=== PATIENT | female | born 1990 | race Caucasian/White ===

== ENCOUNTER 2018-04-10 07:55 | Inpatient (IN) ==
[2018-04-10] MEDS ORDERED: Naloxone 0.4 MG/ML INJ IVP PRN (08:27)
[2018-04-10] MEDS ORDERED: *HR* Nalbuphine 10 MG/ML AMPUL IVP PRN (08:27)
[2018-04-10] MEDS ORDERED: Famotidine 20 MG/2 ML VIAL IVP PRN (08:27)
[2018-04-10] MEDS ORDERED: Ondansetron 4 MG/2 ML VIAL IVP PRN (08:27)
[2018-04-10] MEDS ORDERED: Metoclopramide 10 MG/2 ML VIAL IVP PRN (08:27)
[2018-04-10] MEDS ORDERED: Ringers Solution, Lactated 1,000 ML IVC SCH (08:30)
[2018-04-10] MEDS ORDERED: Oxytocin 20 units/ LR 1000 mL 20 UNIT/1,000 ML BAG IVC SCH (08:45)
[2018-04-10] MEDS ORDERED: Oxytocin 20 units/ LR 1000 mL 20 UNIT/1,000 ML BAG IVC ONE (08:49)
[2018-04-10] MEDS ORDERED: Ringers Solution, Lactated 1,000 ML ONE (08:49)
[2018-04-10 08:53] LABS: Basophils % 0.4 %; Eosinophils # 0.1 K/mcL (0.0-0.6); Eosinophils % 0.5 %; Hematocrit 36.9 % (35.3-44.9); Hemoglobin 12.6 g/dL (11.5-15.4); Immature Granulocytes % 0.5 % (0-4); Lymphocytes # 2.4 K/mcL (0.6-4.6); Lymphocytes % 24.7 %; Mean Corpuscular HGB Conc 34.1 g/dL (31.6-35.5); Mean Corpuscular Hemoglobin 30.3 pg (28.0-33.3); Mean Corpuscular Volume 88.7 fL (83.0-100.0); Mean Platelet Volume 11.4 fL (9.4-12.4); Monocytes # 0.7 K/mcL (0.0-1.3); Monocytes % 7.6 %; Neutrophils # 6.4 K/mcL (1.6-8.9); Platelet Count 270 K/mcL (140-400); Red Blood Count 4.16 M/mcL (3.82-4.97); Red Cell Distribution Width 12.9 % (11.5-14.5); Segmented Neutrophils % 66.3 %
--- NOTE | 2018-04-10 08:59 | OB/GYN History & Physical ---
Date of Encounter: 04/10/18 Time of Encounter: 08:57 Assessment and Plan (1) 39 weeks gestation of Current visit: Yes Status: Acute History of Present Illness Chief complaint: 28-year-old female at 39 weeks of gestation for induction HPI: Ms. Pimentel is a 28 year old female at 39 weeks gestation scheduled for induction of labor. Patient presents today for induction doing well. She is having no complaint. She is huber already. On exam she is 2 cm 80% eff aced. We will place Weaver induction begin Pitocin. Patient doing well. Having no complaints. She has no drug allergies. Currently on vitamins. She has no chronic medical conditions. Surgical history includes a LEEP procedure. She has a history of abnormal Pap smears. She has no history of STDs or pelvic infections. She has no history of abnormal breast findings. Socially she de nies tobacco, alcohol, illicit drug use. Family history significant for hypertension, heart disease and mental illness. Past Med Surg Social Fam HX - Past Medical History Medical history: no medical history - Social History Smoking Status: Never smoker Alcohol use: occasionally Obstetrical History - Pregnancies : 2 Ab's: 1 Medications and Allergies Allergy/AdvReac Type Severity Reaction Status Date / Time No Known Allergies Allergy Verified 04/18/15 16:34 Review of System OB All systems PM: reviewed and no additional remarkable complaints except as stated Exam - Constitutional Constitutional: well developed, well nourished, no acute distress, average body habitus - HEENT HEENT: EOMI, PERRL, Normocephaly - Neck Neck exam: full ROM, normal inspection - Lungs Respiratory exam: CTAB - Cardiovascular Cardiovascular exam: RRR - Abdomen Abdomen: Present: bowel sounds normal - Extremities Extremities exam: full ROM - Vagina Vagina: Present: normal moisture - Cervix Dilation: 2 Effacement: 80 Station: -2 - Uterus Uterus exam: Present: normal size Results Result Diagrams: 04/10/18 08:30 All other labs normal. - VTE Reasons for not Prescribing Prophylaxis: Treatment not Indicated - Low risk for VTE
[2018-04-10 09:10] LABS: Amphetamine Screen,Urine Negative ng/mL (Cutoff=1000); Barbiturate Screen,Urine Negative ng/mL (Cutoff=200); Benzodiazepines Screen,Urine Negative ng/mL (Cutoff=200); Cannabinoid Screen,Urine Negative ng/mL (Cutoff = 50); Cocaine Screen,Urine Negative ng/mL (Cutoff= 300); Opiate Screen,Urine Negative ng/mL (Cutoff=300); Phencyclidine Screen,Urine Negative ng/mL (Cutoff=25)
--- NOTE | 2018-04-10 10:12 | Event Note ---
Date of Encounter: 04/10/18 Time of Encounter: 10:11 Weaver induction started using 60 mL Weaver. Sterile vaginal exam she is 2 cm 90% effaced and 0 station. Category 1 tracing noted with heart rate in the 130s to 140 range. Contractions every 2-4 minutes. Pitocin has been started.
[2018-04-10] MEDS ORDERED: Lidocaine -MPF 1% 5 ML AMPUL ONE (12:38)
[2018-04-10] MEDS ORDERED: Epidural Premix (fent/bupiv) 110 ML EP ONE (12:40)
[2018-04-10] MEDS ORDERED: Epidural Premix (fent/bupiv) 110 ML EP SCH (12:45)
--- NOTE | 2018-04-10 13:10 | Anesthesia Evaluation PreOp ---
Date of Encounter: 04/10/18 Time of Encounter: 13:09 - Past History Planned Operation: CARLIN Cardiac History: Denies any Significant Hx Pulmonary History: Denies Any Significant HX CONTROL ROOM HELPER History: Denies Any Significant HX Other Medical History: Thyroid Anesthesia History: No Prior Anesthetic Complications, Past Anesthesia Alcohol Use: occasionally Drug use: none Medications and Allergies Ferrous Sulfate 1 tab PO DAILY 04/10/18 [History] Levothyroxine [Synthroid] 1 tab PO DAILY 04/10/18 [History] 19 Tablet 1 tab PO DAILY 04/10/18 [History] Allergy/AdvReac Type Severity Reaction Status Date / Time No Known Allergies Allergy Verified 04/18/15 16:34 - Meds/Allergy Pre-op Review Medications Reviewed: Yes Allergies Reviewed: Yes Beta Blockers on Current Med List: No Anesthesia Results - Labs 04/10/18 08:30 Anesthesia Exam O2 Sat Height 1.6 m Weight 70.488 kg NPO (# of Hours): 3 Pain Scale: 9 Pain Scale Used: Numeric (1 - 10) - HEENT Pupil (Motor): Pupils equal Mallampati: II Teeth: Normal Oral Opening: Greater than 3 - CONTROL ROOM HELPER LOC: Oriented CONTROL ROOM HELPER Motor: Normal RUE, Normal LUE, Normal RLE, Normal LLE, Normal Face CONTROL ROOM HELPER Sensory: Normal: RUE, LUE, RLE, LLE, Face - Cardiac Rhythm: Regular Murmur: None JVD: No Carotid Bruit: No - Pulmonary Breath Sounds: bilateral Clear Respiratory Effort: Symmetrical Anesthesia Assess/Plan ASA Score: 2 Level of consciousness: Cooperative, Oriented Anesthetic Plan: General (plan b), Epidural (plan a) Autologous Blood: Yes Monitoring Plan: Standard Monitors Recovery Plan: PACU
--- NOTE | 2018-04-10 13:11 | Anesthesia Procedures ---
Addendum entered and electronically signed by Storm Salomon CRNA 04/11/18 06:42: Delivery Date: 04/10/18 Infant Delivery Time: 22:19 Original Note: Date of Encounter: 04/10/18 Time of Encounter: 13:10 Procedures: Anesthesia - Epidural/Spinal Patient ID/Chart reviewed: Yes Patient examined: Yes OB Eval: Gestational age: 39 OB Eval: : 2 OB Eval: Hx Para: 0 OB Eval: Dilated at (cm): 5 OB Eval: Contractions: Non-stressed pattern Consent Obtained: Yes Supplemental Oxygen: None/Room Air Site Prep: Aseptic Technique, Sterile prep and drape, Povidone-Iodine 1% Patient position: upright Local Anesthetic: Lidocaine 1% Amount of Local Anesthetic used: 3 Touhy Needle Gauge: 18 Touhy Needle Depth (cm): 7 Catheter Depth at Skin (cm): 20 Test Dose (1.5% Lido + Epi): Volume given (mls): 5 Test Dose Result: Negative Loading Dose: Other: 10mls of epidural pharm bag premix solution Loading Dose Administered: Thru Catheter Infusion Med: 0.125% Bupivacaine w/ 2 mcg/ml Fentanyl Infusion Rate (mls/hr): 14 ([id number] pcea) Catheter Secured in Place: Tegaderm, Tape Interspace Used: L4-L5 Loss of Resistance (KEELEY): Yes Blood: No CSF: No Paresthesia: No Procedure: pt tolerated procedure well. no complications. vss. fhr stable.
[2018-04-10] MEDS ORDERED: Lidocaine/EPI 1:200k 2% PF 20 ML VIAL ONE (17:02)
[2018-04-10] MEDS ORDERED: *HR* Ropivacaine/PF 0.2% 20 ML VIAL ONE (17:03)
--- NOTE | 2018-04-10 17:11 | Anesthesia Progress Note ---
Date of Encounter: 04/10/18 Time of Encounter: 17:09 Anesthesia Note - Note Note: 04/10/18 17:09 called for increased pain only on the lower ride side, not feeling contractions anywhere else. bolus given of 4ml 2% lido with epi and 4ml of 0.2% ropivacaine. adequate relief. gtt increased to 16ml/hr.
--- NOTE | 2018-04-10 21:27 | Event Note ---
Date of Encounter: 04/10/18 Time of Encounter: 21:25 Patient has had an anterior lip for the last 2 hours. On examination I was able to reduce the cervix with pushing. The patient stayed complete. Patient was able to bring down to a +1 station easily. We will begin pushing. heart rate tracing is category 1 contractions every 2 minutes.
--- NOTE | 2018-04-10 22:46 | OB/GYN Procedure Note ---
Delivery - Delivery Date: 04/10/18 Provider: Antonio Stanford Intrapartum events: none Delivery induction: oxytocin, brunner Delivery augmentation: pitocin Delivery monitor: external FHT, external uterine Anesthesia: epidural Quantitated Blood Loss: 300 - (s) Infant A Delivery Date: 04/10/18 Infant Delivery Time: 22:19 Presentation: vertex Position: OP Route of delivery: Gender: Male Viability: Viable Pounds: 8 Ounces: 7 Weight Gram: 3.83 kg at 1 minute: 9 at 5 mins: 9 Shoulder Dystocia: not encountered Specimens collected: cord blood Placenta: spontaneous Cord: nuchal cord, 3 umbilical vessels, nuchal reduced - Repair Episiotomy: none Laceration Description: Perineal - 2nd Degree - Complications Delivery complications: none Delivery comments: Patient progressed to complete and pushing. Patient had spontaneous vaginal delivery of a male infant in occiput posterior presentation. There was a cord around the neck which was reduced after delivery of head. The rest of the infant was then delivered without difficulty. Infant cried immediately upon delivery. Cord was clamped cut. The infant was then passed to the NICU team in attendance. Cord blood was obtained. Placenta was delivered spontaneously and intact. There were no cervical, vaginal or periurethral lacerations noted. There was a second-degree perineal laceration repaired with 3-0 Vicryl suture in the usual fashion. Patient delivered a male weight was 8 lbs. 7 oz. with Apgars of 9 at 1 minute and 9 at 5 minutes. Estimated blood loss is 300 mL. - Disposition Mom disposition: stable in LDR disposition: stable in LDR
[2018-04-11] MEDS ORDERED: Acetaminophen 325 MG TABLET PO PRN (00:35)
[2018-04-11] MEDS ORDERED: Measles/Mumps/Rubella Vacc 0.5 ML VIAL SQ PRN (00:35)
[2018-04-11] MEDS ORDERED: Oxytocin 20 units/ LR 1000 mL 20 UNIT/1,000 ML BAG IVC SCH (00:35)
[2018-04-11] MEDS: Ibuprofen 600 MG TABLET PO PRN ×4 (01:22→21:29)
[2018-04-11 08:11] LABS: Basophils % 0.1 %; Hematocrit 27.1 % (35.3-44.9); Immature Granulocytes % 0.5 % (0-4); Lymphocytes # 1.8 K/mcL (0.6-4.6); Lymphocytes % 8.5 %; Mean Corpuscular HGB Conc 34.3 g/dL (31.6-35.5); Mean Corpuscular Hemoglobin 30.6 pg (28.0-33.3); Mean Corpuscular Volume 89.1 fL (83.0-100.0); Mean Platelet Volume 11.5 fL (9.4-12.4); Monocytes # 1.4 K/mcL (0.0-1.3); Monocytes % 6.6 %; Neutrophils # 17.7 K/mcL (1.6-8.9); Platelet Count 207 K/mcL (140-400); Red Blood Count 3.04 M/mcL (3.82-4.97); Red Cell Distribution Width 12.9 % (11.5-14.5); Segmented Neutrophils % 84.3 %
[2018-04-11 08:13] LABS: Hemoglobin 9.3 g/dL (11.5-15.4)
[2018-04-11] MEDS ORDERED: NON-FORMULARY MEDICATION 1 EACH EACH (Prenatal 19 Tablet 1 TAB) PO SCH (09:00)
[2018-04-11] MEDS ORDERED: NON-FORMULARY MEDICATION 1 EACH EACH (Ferrous Sulfate 1 TAB) PO SCH (09:00)
[2018-04-11] MEDS: Prenatal Vit/FA 1 EACH TABLET PO SCH (10:29)
--- NOTE | 2018-04-12 07:13 | Discharge Summary ---
Date of Encounter: 04/12/18 Time of Encounter: 07:11 - Discharge Diagnosis (1) Status post vaginal delivery Priority: Primary Status: Acute Comments: Patient meeting day one milestones. Pain well-controlled with prescribed medications, tolerating regular diet. Voiding without difficulty. No bowel movement yet. Anticipate discharge today (2) Breast feeding status of mother Priority: Secondary Status: Acute Comments: support as needed (3) anemia Priority: Secondary Status: Acute Comments: Patient is asymptomatic with hemoglobin of 9.3 this morning, vitals within normal limits. We will send home with iron prescription to take daily (4) Second degree perineal laceration Priority: Secondary Status: Acute Comments: Ice packs, and Motrin as needed. Patient states pain is well-controlled with Motrin - Discharge Medications Prescriptions: Ibuprofen [Motrin] 600 mg PO Q6HR PRN #60 tablet PRN Reason: Moderate Pain Breast Pump [BREAST PUMP] 1 each .ROUTE AD #1 each Ferrous Sulfate 325 mg PO DAILY@0800 #30 tablet Home Medications: Levothyroxine [Synthroid] 1 tab PO DAILY 04/10/18 [History] 19 Tablet 1 tab PO DAILY 04/10/18 [History] Acetaminophen [Tylenol] 650 mg PO Q6HR PRN tablet 04/12/18 [Rx] Breast Pump [BREAST PUMP] 1 each .ROUTE AD #1 each 04/12/18 [Rx] Docusate [Colace] 100 mg PO BID capsule 04/12/18 [Rx] Ferrous Sulfate 325 mg PO DAILY@0800 #30 tablet 04/12/18 [Rx] Ibuprofen [Motrin] 600 mg PO Q6HR PRN #60 tablet 04/12/18 [Rx] Allergies/Adverse Reactions: Allergy/AdvReac Type Severity Reaction Status Date / Time No Known Allergies Allergy Verified 04/18/15 16:34 Data Procedures and tests throughout hospitalization: Laboratory Tests 04/10/18 04/10/18 04/11/18 08:30 08:30 07:45 WBC 9.6 21.0 H D RBC 4.16 3.04 L Hgb 12.6 9.3 L D Hct 36.9 27.1 L MCV 88.7 89.1 MCH 30.3 30.6 MCHC 34.1 34.3 RDW 12.9 12.9 Plt Count 270 207 MPV 11.4 11.5 Immature Gran % 0.5 0.5 Seg Neutrophils % 66.3 84.3 Lymphocytes % 24.7 8.5 Monocytes % 7.6 6.6 Eosinophils % 0.5 0.0 Basophils % 0.4 0.1 Neutrophils # 6.4 17.7 H Lymphocytes # 2.4 1.8 Monocytes # 0.7 1.4 H Eosinophils # 0.1 0.0 Basophils # 0.0 0.0 Urine Opiates Screen Negative Ur Barbiturates Screen Negative Ur Phencyclidine Scrn Negative Ur Amphetamines Screen Negative U Benzodiazepines Scrn Negative Urine Cocaine Screen Negative U Marijuana (THC) Screen Negative Ur Drug Screen Interp See Below Labs on day of discharge: Labs from last 24 hours 04/11/18 07:45 WBC 21.0 H D RBC 3.04 L Hgb 9.3 L D Hct 27.1 L MCV 89.1 MCH 30.6 MCHC 34.3 RDW 12.9 Plt Count 207 MPV 11.5 Immature Gran % 0.5 Seg Neutrophils % 84.3 Lymphocytes % 8.5 Monocytes % 6.6 Eosinophils % 0.0 Basophils % 0.1 Neutrophils # 17.7 H Lymphocytes # 1.8 Monocytes # 1.4 H Eosinophils # 0.0 Basophils # 0.0 Date of admission: 04/10/18 07:55 Consults: 04/11/18 00:35 Consult to Diesel Powerplant Supervisor [CONS] Routine Comment: Vaginal delivery, consult needed Discharging clinician: Margret Hanna Anticipated date of discharge: 04/12/18 - Patient Status Disposition: Home, Self-Care Condition: Good Functional capacity at discharge: independent ambulation Overall status at discharge: patient is progressing back to baseline - Discharge Instructions - Diet and Activity Activity: resume usual activities as tolerated Diet: regular diet Hospital Course Reason for admission: induction of labor Delivery: Episiotomy: none Laceration: 2nd degree Other procedures: none complications: none Discharge diagnosis: IUP at term delivered [place] baby: male Hospital course: Patient meeting day one milestones. Pain well-controlled with prescribed medications. Voiding without difficulty. No bowel movement yet. Anticipate discharge today Delivery Date: 04/10/18 Provider: Antonio Stanford Intrapartum events: none Delivery induction: oxytocin, brunner Delivery augmentation: pitocin Delivery monitor: external FHT, external uterine Anesthesia: epidural Quantitated Blood Loss: 300 - Infant (s) A Infant Delivery Date: 04/10/18 Delivery Time: 22:19 Presentation: vertex Position: OP Route of delivery: Gender: Male Viability: Viable Pounds: 8 Ounces: 7 Weight Gram: 3.83 kg at 1 minute: 9 at 5 mins: 9 Shoulder Dystocia: not encountered Specimens collected: cord blood Placenta: spontaneous Cord: nuchal cord, 3 umbilical vessels, nuchal reduced - Repair Episiotomy: none Laceration Description: Perineal - 2nd Degree - Complications Delivery complications: none Delivery comments: Patient progressed to complete and pushing. Patient had spontaneous vaginal delivery of a male in occiput posterior presentation. There was a cord around the neck which was reduced after delivery of infant head. The rest of the infant was then delivered without difficulty. cried immediately upon delivery. Cord was clamped cut. The infant was then passed to the NICU team in attendance. Cord blood was obtained. Placenta was delivered spontaneously and intact. There were no cervical, vaginal or periurethral lacerations noted. There was a second-degree perineal laceration repaired with 3-0 Vicryl suture in the usual fashion. Patient delivered a male infant weight was 8 lbs. 7 oz. with Apgars of 9 at 1 minute and 9 at 5 minutes. Estimated blood loss is 300 mL. Time Attestation: Total time spent providing and/or coordinating discharge services: Time Spent: Less than 30 minutes Exam - Constitutional Vitals: Temp Pulse Resp BP Pulse Ox 98.0 F 79 14 126/83 97 04/11/18 21:34 04/11/18 21:34 04/11/18 21:34 04/11/18 21:34 04/11/18 21:34 General appearance IM: A&O X 3, pleasant, no acute distress, answers questions appropriately - Respiratory Respiratory exam: Present: CTAB - Cardiovascular Cardiovascular exam IM: Present: RRR, +S1, +S2 - GI/Abdominal GI/Abdominal exam IM: normal bowel sounds, soft - Rectal Rectal exam: deferred - Extremities Exam Extremities exam IM: Present: full ROM, normal capillary refill, normal inspection - Neurological Exam Neurological exam: alert, normal gait, oriented X3
[2018-04-12] MEDS: Ibuprofen 600 MG TABLET PO PRN (07:39)
[2018-04-12 07:40] VITALS: BP 123/84
[2018-04-12] MEDS: Prenatal Vit/FA 1 EACH TABLET PO SCH (07:40)
== END 2018-04-12 12:15 | disposition home or self-care (01) | DRG 807 ==
LOC: 1NENULAB 07:55 → 1NENUOBS 04-11 00:34
PROVIDERS: ADMIT Obstetrics & Gynecology; ATTEND Obstetrics & Gynecology

== ENCOUNTER 2020-12-07 06:46 | Inpatient (IN) ==
[~2020-12-07 06:46] MED LIST: *HR* Nalbuphine 10 MG/ML AMPUL IV PRN; Azithromycin 500 MG in 0.9 % Sodium Chloride 250 ML IVPB PRN; Famotidine 20 MG/2 ML VIAL IVP PRN; Lidocaine 1% 20 ML MDV INFILT PRN; Metoclopramide 10 MG/2 ML VIAL IVP PRN; Naloxone 0.4 MG/ML INJ IVP PRN; Ondansetron 4 MG/2 ML VIAL IVP PRN; Penicillin G Potassium 5,000,000 UNIT in 0.9 % Sodium Chloride Mini Bag 100 ML IVPB ONE
[2020-12-07] MEDS ORDERED: Ringers Solution, Lactated 1,000 ML ONE ×2 (06:48→09:50)
[2020-12-07 07:11] LABS: Basophils % 0.4 %; Eosinophils # 0.1 K/mcL (0.0-0.6); Eosinophils % 0.7 %; Hematocrit 35.9 % (35.3-44.9); Hemoglobin 11.9 g/dL (11.5-15.4); Immature Granulocytes % 0.7 % (0-4); Lymphocytes # 2.4 K/mcL (0.6-4.6); Lymphocytes % 21.9 %; Mean Corpuscular HGB Conc 33.1 g/dL (31.6-35.5); Mean Corpuscular Hemoglobin 29.9 pg (28.0-33.3); Mean Corpuscular Volume 90.2 fL (83.0-100.0); Mean Platelet Volume 10.9 fL (9.4-12.4); Monocytes # 0.7 K/mcL (0.0-1.3); Monocytes % 6.4 %; Neutrophils # 7.5 K/mcL (1.6-8.9); Platelet Count 263 K/mcL (140-400); Red Blood Count 3.98 M/mcL (3.82-4.97); Segmented Neutrophils % 69.9 %; White Blood Count 10.8 K/mcL (4.3-11.1)
[2020-12-07 07:31] LABS: Alanine Aminotransferase 13 Units/L (7-52); Aspartate Amino Transferase 20 Units/L (13-39); BUN/Creatinine Ratio 10 (6-26); Blood Urea Nitrogen 7 mg/dL (6-20); Influenza A PCR Negative (Negative); Influenza B PCR Negative (Negative); Lactate Dehydrogenase 156 Units/L (140-271); Resp. Syncytial Virus PCR Negative (Negative); Uric Acid 5.8 mg/dL (2.3-7.6); eGFR For African Americans > 60 (> 60); eGFR For Non-African Americans > 60 (> 60)
[2020-12-07 07:36] LABS: SARS-CoV-2 by PCR (In House) Negative (Negative)
[2020-12-07] MEDS ORDERED: Ropivacaine/PF 0.2% 20 ML VIAL EP ONE (08:57)
[2020-12-07] MEDS ORDERED: EPHEDrine 50 MG/ML VIAL IVP PRN (08:57)
[2020-12-07] MEDS ORDERED: *HR* FentaNYL (PF) 100 MCG/2 ML VIAL EP ONE (08:57)
[2020-12-07] MEDS ORDERED: Epidural Premix (fent/bupiv) 110 ML EP ONE (08:58)
[2020-12-07] MEDS: Epidural Premix (fent/bupiv) 110 ML EP SCH ×2 (09:22→14:37)
[2020-12-07] MEDS ORDERED: Ringers Solution, Lactated 1,000 ML IVC SCH (10:00)
[2020-12-07] MEDS: Penicillin G Potassium 2,500,000 UNIT/105 ML MLS IVPB SCH ×2 (11:06→15:12)
[2020-12-07] MEDS ORDERED: Ropivacaine/PF 0.2% 20 ML VIAL ONE (11:56)
[2020-12-07] MEDS ORDERED: *HR* FentaNYL (PF) 100 MCG/2 ML VIAL ONE (11:56)
[2020-12-07 14:28] LABS: Amphetamine Screen,Urine Negative ng/mL (Cutoff=1000); Barbiturate Screen,Urine Negative ng/mL (Cutoff=200); Benzodiazepines Screen,Urine Negative ng/mL (Cutoff=200); Cannabinoid Screen,Urine Negative ng/mL (Cutoff = 50); Cocaine Screen,Urine Negative ng/mL (Cutoff= 300); Opiate Screen,Urine Negative ng/mL (Cutoff=300); Phencyclidine Screen,Urine Negative ng/mL (Cutoff=25)
[2020-12-07] MEDS ORDERED: Lanolin 7 G OINT...G. TP PRN (19:36)
[2020-12-07] MEDS ORDERED: Measles/Mumps/Rubella Vacc 0.5 ML VIAL SQ PRN (19:36)
[2020-12-07] MEDS ORDERED: Oxytocin 20 units/ LR 1000 mL 20 UNIT/1,000 ML BAG IVC SCH (19:36)
[2020-12-07] MEDS ORDERED: Benzocaine/Menthol 56 GM AEROSOL SPRAY TP PRN (19:36)
[2020-12-07] MEDS ORDERED: Rho Immune Globulin 1,500 UNIT SYRINGE IM PRN (19:36)
[2020-12-07] MEDS ORDERED: Oxytocin 20 units/ LR 1000 mL 20 UNIT/1,000 ML BAG IVC ONE (19:36)
[2020-12-07] MEDS ORDERED: Ondansetron ODT 4 MG TAB.RAPDIS SL PRN (19:36)
[2020-12-07] MEDS: Ibuprofen 600 MG TABLET PO SCH (20:38)
[2020-12-07] MEDS: Acetaminophen 325 MG TABLET PO SCH (20:38)
[2020-12-07 20:39] VITALS: O2SAT 98
[2020-12-07 22:46] VITALS: TEMP 98.4
[2020-12-08 00:30] LABS: BUN/Creatinine Ratio 10 (6-26); Blood Urea Nitrogen 7 mg/dL (6-20); Calcium 8.5 mg/dL (8.6-10.3); Carbon Dioxide 21 mEq/L (23-29); Chloride 106 mEq/L (98-107); Glucose 128 mg/dL (70-105); Osmolality,Calculated 280 (280-300); Potassium 3.8 mEq/L (3.5-5.1); Sodium 135 mEq/L (136-145); eGFR For African Americans > 60 (> 60); eGFR For Non-African Americans > 60 (> 60)
[2020-12-08 00:47] LABS: Thyroid Stimulating Hormone 1.964 mcIU/mL (0.340-5.600)
[2020-12-08 00:48] LABS: Triiodothyronine (T3) Free 3.11 pg/mL (2.50-3.90)
[2020-12-08 00:50] LABS: Basophils % 0.1 %; Eosinophils % 0.1 %; Hematocrit 28.6 % (35.3-44.9); Immature Granulocytes % 0.6 % (0-4); Lymphocytes # 1.8 K/mcL (0.6-4.6); Lymphocytes % 12.1 %; Mean Corpuscular HGB Conc 33.9 g/dL (31.6-35.5); Mean Corpuscular Volume 88.5 fL (83.0-100.0); Mean Platelet Volume 10.8 fL (9.4-12.4); Monocytes # 0.8 K/mcL (0.0-1.3); Monocytes % 5.3 %; Neutrophils # 12.3 K/mcL (1.6-8.9); Platelet Count 226 K/mcL (140-400); Red Blood Count 3.23 M/mcL (3.82-4.97); Red Cell Distribution Width 12.7 % (11.5-14.5); Segmented Neutrophils % 81.8 %; White Blood Count 15.1 K/mcL (4.3-11.1)
[2020-12-08 01:04] LABS: Hemoglobin 9.7 g/dL (11.5-15.4)
[2020-12-08 07:35] VITALS: BP 137/95; PULSE 74
[2020-12-08] MEDS: Ibuprofen 600 MG TABLET PO SCH ×2 (07:51→14:10)
[2020-12-08] MEDS: Acetaminophen 325 MG TABLET PO SCH ×2 (07:52→14:10)
[2020-12-08 08:20] LABS: Basophils % 0.2 %; Eosinophils % 0.4 %; Hematocrit 28.3 % (35.3-44.9); Hemoglobin 9.5 g/dL (11.5-15.4); Immature Granulocytes % 0.7 % (0-4); Lymphocytes # 2.1 K/mcL (0.6-4.6); Lymphocytes % 18.3 %; Mean Corpuscular HGB Conc 33.6 g/dL (31.6-35.5); Mean Corpuscular Hemoglobin 30.4 pg (28.0-33.3); Mean Corpuscular Volume 90.4 fL (83.0-100.0); Mean Platelet Volume 10.5 fL (9.4-12.4); Monocytes # 0.9 K/mcL (0.0-1.3); Neutrophils # 8.3 K/mcL (1.6-8.9); Platelet Count 228 K/mcL (140-400); Red Blood Count 3.13 M/mcL (3.82-4.97); Red Cell Distribution Width 13.1 % (11.5-14.5); Segmented Neutrophils % 72.4 %; White Blood Count 11.4 K/mcL (4.3-11.1)
[2020-12-08] MEDS ORDERED: Prenatal Vit/FA 1 EACH TABLET PO SCH (09:00)
== END 2020-12-08 19:18 | disposition home or self-care (01) | DRG 807 ==
LOC: 1NENULAB → 1NENUOBS 20:33
PROVIDERS: ADMIT Obstetrics & Gynecology; ATTEND Obstetrics & Gynecology